=== PATIENT | male | born 1975 | race Caucasian/White ===

== ENCOUNTER → 2017-05-26 | Outpatient (CLI) | payer OTHER | END | disposition home or self-care (01) | LOC: CDC 13:54 | DX: Z01.810 Encounter for preprocedural cardiovascular examination (principal); G56.22 Lesion of ulnar nerve, left upper limb; G56.02 Carpal tunnel syndrome, left upper limb; R00.0 Tachycardia, unspecified | CPT/HCPCS: 93000 ==

== ENCOUNTER 2017-10-20 00:42 | Emergency (ER) | payer OTHER ==
[~2017-10-20] VITALS: Ht 185.4 cm; Wt 150.0 kg
[2017-10-20] MEDS ORDERED: OXYCONTIN15 MG PO (03:36)
[2017-10-20 04:00] VITALS: BP 105/62
== END 2017-10-20 04:01 | disposition home or self-care (01) ==
LOC: EME 00:42
DX: G89.18 Other acute postprocedural pain (principal); M79.622 Pain in left upper arm; R42 Dizziness and giddiness; Z98.890 Other specified postprocedural states; Z88.8 Allergy status to other drugs, medicaments and biological substances
CPT/HCPCS: 93005; 99281; 99285; J2270; J2405; J7030